=== PATIENT | male | born 1980 | race Caucasian/White ===

== ENCOUNTER 2018-01-14 08:10 | Emergency (ER) | payer BC, OTHER ==
[2018-01-14 08:44] VITALS: BP 139/83
--- NOTE | 2018-01-14 08:50 | ED ---
HPI Chest Pain - HPI Summary HPI Summary: 37 yr old male with complaint of discomfort in his anterior chest over the sternum. Non radiating, no worse with exertion. He states he took his BP yesterday and it was 180 systolic last evening. The patient has not had dizziness, SOB, sweating, nausea. No pleuritic symptoms. He has not seen a doctor in three years. - History of Current Complaint Time Seen by Provider: 01/14/18 08:43 - Allergy/Home Medications Allergies/Adverse Reactions: Allergies Allergy/AdvReac Type Severity Reaction Status Date / Time No Known Allergies Allergy Verified 03/03/16 08:32 PMH/Surg Hx/FS Hx/Imm Hx - Surgical History Surgery Procedure, Year, and Place: Left knee arthroscopy 2011. Right knee arthroscopy 2009 Infectious Disease History: Denies: Hx Clostridium Difficile, Hx Hepatitis, Hx Human Immunodeficiency Virus (HIV), Hx of Known/Suspected MRSA, Hx Shingles, Hx Tuberculosis, Hx Known/ Suspected VRE, Hx Known/Suspected VRSA, History Other Infectious Disease - Family History Known Family History: Positive: Hypertension - Social History Occupation: Employed Full-time Alcohol Use: Occasionally Alcohol Amount: 4 beers weekly Substance Use Type: Reports: None Smoking Status (MU): Current Some Day Smoker Review of Systems Constitutional: Negative Positive: Chest Pain Negative: Shortness Of Breath Negative: Nausea All Other Systems Reviewed And Are Negative: Yes Physical Exam Triage Information Reviewed: Yes Vital Signs Reviewed: Yes Appearance: Positive: Well-Appearing, No Pain Distress Skin: Positive: Warm, Skin Color Reflects Adequate Perfusion Head/Face: Positive: Normal Head/Face Inspection Eyes: Positive: EOMI ENT: Positive: Normal ENT inspection Neck: Positive: Nontender Respiratory/Lung Sounds: Positive: Clear to Auscultation, Breath Sounds Present Cardiovascular: Positive: RRR. Negative: Murmur Abdomen Description: Negative: Distended Musculoskeletal: Positive: Strength/ROM Intact Neurological: Positive: Alert, Oriented to Person Place, Time, CN Intact II-III , Normal Gait, Speech Normal Psychiatric: Positive: Normal Diagnostics - Laboratory Lab Statement: Any lab studies that have been ordered have been reviewed, and results considered in the medical decision making process. - EKG 01/14/18 Cardiac Rate: Bradycardia ST Segment: Normal Ectopy: None Chest Pain Course/Dx - Course Course Of Treatment: 37 yr old with chest discomfort for a day. He declines going to ER by ambulance or even by himself for work up. He signed out AMA. - Diagnoses Provider Diagnoses: Chest pain Discharge - Sign-Out/Discharge Documenting (check all that apply): Patient Departure All imaging exams completed and their final reports reviewed: No Studies - Discharge Plan Condition: Good Disposition: AGAINST MEDICAL ADVICE Referrals: Kvng Sweeney MD [Primary Care Provider] - - Billing Disposition and Condition Condition: GOOD Disposition: Against Medical Advice
== END 2018-01-14 09:05 | disposition left against medical advice (07) ==
LOC: UCCORT 08:10
DX: R07.89 Other chest pain (principal); F17.210 Nicotine dependence, cigarettes, uncomplicated
CPT/HCPCS: 93005; 99212; G0463

== ENCOUNTER 2018-04-15 12:23 | Emergency (ER) | payer BC ==
[2018-04-15 12:54] VITALS: BP 140/71
[2018-04-15] MEDS ORDERED: Albuterol 2.5 MG/3 ML NEB.SOL* (0.083%) INH ONE (13:01)
[2018-04-15] MEDS ORDERED: predniSONE TAB* 20 MG PO ONE (13:01)
--- NOTE | 2018-04-15 13:03 | UC ---
General HPI - HPI Summary HPI Summary: pt c/o being ill for over 9 days and it really took off on . sore throat at onset then sinus congestion and cough with chest congestion that remains severe. denies fever, wheezing and hx asthma. Green sputum. - History of Current Complaint Chief Complaint: UCRespiratory Stated Complaint: CHEWST CONGESTION,COUGH Time Seen by Provider: 04/15/18 12:53 Hx Obtained From: Patient Onset/Duration: Gradual Onset Timing: Constant Pain Intensity: 0 Associated Signs & Symptoms: Positive: Cough, Fever - at onset - Allergy/Home Medications Allergies/Adverse Reactions: Allergies Allergy/AdvReac Type Severity Reaction Status Date / Time No Known Allergies Allergy Verified 04/15/18 12:54 Home Medications: Home Medications Ibuprofen TAB* [Advil TAB*] 400 mg PO Q6H PRN 04/15/18 [History Confirmed ] guaiFENesin [Mucinex] 600 mg PO BID 04/15/18 [History Confirmed 04/15/18] PMH/Surg Hx/FS Hx/Imm Hx Previously Healthy: Yes - Surgical History Surgical History: Yes Surgery Procedure, Year, and Place: Left knee arthroscopy 2011. Right knee arthroscopy 2009 Other Surgical History: past lasik surgery 2 to 3 years ago - Family History Known Family History: Positive: Hypertension - Social History Alcohol Use: Occasionally Alcohol Amount: 4 beers weekly Substance Use Type: None Smoking Status (MU): Former Smoker Type: Cigars When Did the Patient Quit Smoking/Using Tobacco: 10 months ago- stopped chewing - Immunization History Most Recent Tetanus Shot: OVER 5 YEARS AGO Vaccination Up to Date: Yes Review of Systems All Other Systems Reviewed And Are Negative: Yes Constitutional: Positive: Fever Skin: Positive: Negative Eyes: Positive: Negative ENT: Positive: Sore Throat, Sinus Congestion Respiratory: Positive: Cough Cardiovascular: Positive: Negative Gastrointestinal: Positive: Negative Genitourinary: Positive: Negative Motor: Positive: Negative Neurovascular: Positive: Negative Musculoskeletal: Positive: Negative Neurological: Positive: Negative Psychological: Positive: Negative Physical Exam Triage Information Reviewed: Yes Appearance: Well-Appearing Vital Signs: Initial Vital Signs Temp 96.5 F 04/15/18 12:51 Pulse 67 04/15/18 12:51 Resp 17 04/15/18 12:51 BP 140/71 04/15/18 12:51 Pulse Ox 99 04/15/18 12:51 Vital Signs Reviewed: Yes Eyes: Positive: Conjunctiva Clear ENT: Positive: Pharynx normal, TMs normal, Hoarse voice, Uvula midline - but red and swollen, no airway compromise. Negative: Nasal congestion, Nasal drainage, Trismus, Muffled voice Neck: Positive: Supple, Nontender, No Lymphadenopathy Respiratory: Positive: No respiratory distress, Decreased breath sounds, Other: - frequent congested cough Cardiovascular: Positive: RRR, No Murmur Abdomen Description: Positive: Nontender, No Organomegaly, Soft Bowel Sounds: Positive: Present Musculoskeletal: Positive: ROM Intact Neurological: Positive: Alert Psychological: Positive: Age Appropriate Behavior Skin Exam: Normal Diagnostics - Laboratory Diagnostic Studies Completed/Ordered: rapid strep=neg - Radiology No standard instances Radiology Interpretation Completed By: Radiologist - cxr=IMPRESSION: SMALL RIGHT UPPER LOBE INFILTRATE. Re-Evaluation - Re-Evaluation First Eval Change: Improved - PT NOTES EASIER TO RAISE THE SECRETIONS FROM LUNGS POST NEB TX. AERATION IMPROVED ON EXAM. Course/Dx - Course Course Of Treatment: NON TOXIC, NOT HYPOXIC. NEED FOR CLOSE F/U TO RESOLUTION STRESSED. NO PCP. [facility] SUGGESTED BECAUSE NEAR PT'S HOME AND THEY ARE TAKING PT'S. PT DECLINED A WORK NOTE. NO HX HTN, I THINK BP IS ILLNESS RELATED - Diagnoses Provider Diagnosis: Uvulitis, Community acquired pneumonia Discharge - Sign-Out/Discharge Documenting (check all that apply): Patient Departure All imaging exams completed and their final reports reviewed: Yes - Discharge Plan Condition: Stable Disposition: HOME Prescriptions: Albuterol HFA INHALER* [Ventolin HFA Inhaler*] 2 puff INH Q6H #1 mdi DOXYcycline CAP(*) [DOXYcycline 100MG CAP(*)] 100 mg PO BID 10 Days #20 cap predniSONE TAB* [Deltasone 20 MG TAB*] 40 mg PO DAILY 5 Days #10 tab Patient Education Materials: Community Acquired Pneumonia (ED), Uvulitis (ED) Referrals: Hiral Ching MD [Medical Doctor] - 7 Days - Billing Disposition and Condition Condition: STABLE Disposition: Home
== END 2018-04-15 13:51 | disposition home or self-care (01) ==
LOC: UCCORT 12:23
DX: K12.2 Cellulitis and abscess of mouth (principal); J18.9 Pneumonia, unspecified organism; Z87.891 Personal history of nicotine dependence
CPT/HCPCS: 71046; 87651; 99212; G0463; J7512

== ENCOUNTER 2019-03-13 12:17 | Emergency (ER) | payer BC ==
--- NOTE | 2019-03-13 14:41 | UC ---
Respiratory Complaint HPI - HPI Summary HPI Summary: 38 y/o male presents to the urgent care c/o sore throat, nasal congestion w/ yellowish nasal discharge for the past week. Then she developed a productive cough which worse about 3 days ago. Sore throat subsided, but moderate PND has increase w/ B/L ear pressure and sinus pain. He developed fever of 101F yesterday. He has taken Mucinex PO to alleviate symptoms. Sinus pain now is 4/ 10 w/ a lot of pressure. Pt denies SOB, chest pain, wheezing, dizziness, abdominal pain, N/V/d. - History of Current Complaint Stated Complaint: CHEST CONGESTION Time Seen by Provider: 03/13/19 14:40 Hx Obtained From: Patient Onset/Duration: Gradual Onset, Lasting Weeks - 1 week, Still Present, Worse Since - 3 days Timing: Constant Severity Initially: Mild Severity Currently: Moderate Pain Intensity: 4 Pain Scale Used: 0-10 Numeric Character: Cough: Productive, Sputum Description: - yellowish Aggravating Factors: Recumbent Position Alleviating Factors: OTC Meds - Mucinex PO Associated Signs And Symptoms: Positive: Fever - last night of 101F resolved today, URI, Nasal Congestion, Sinus Discomfort. Negative: Wheezing - Risk Factors Pulmonary Embolism Risk Factors: Negative Cardiac Risk Factors: Negative Pseudomonas Risk Factors: Negative - Allergies/Home Medications Allergies/Adverse Reactions: Allergies Allergy/AdvReac Type Severity Reaction Status Date / Time No Known Allergies Allergy Verified 03/13/19 14:40 Home Medications: Home Medications Guaifenesin/Pseudoephedrne HCl [Mucinex D ER 600-60 mg Tablet] 2 each PO BID PRN 03/13/19 [History Confirmed 03/13/19] PMH/Surg Hx/FS Hx/Imm Hx Previously Healthy: Yes Respiratory History: Pneumonia - 2018 - Surgical History Surgical History: Yes Surgery Procedure, Year, and Place: Left knee arthroscopy 2011. Right knee arthroscopy 2009 Other Surgical History: past lasik surgery 2 to 3 years ago - Family History Known Family History: Positive: Hypertension Family History: stroke - Social History Occupation: Employed Full-time Lives: With Family Alcohol Use: Occasionally Alcohol Amount: 4 beers weekly Substance Use Type: None Smoking Status (MU): Former Smoker Type: Cigars When Did the Patient Quit Smoking/Using Tobacco: 10 months ago- stopped chewing - Immunization History Most Recent Tetanus Shot: OVER 5 YEARS AGO Vaccination Up to Date: Yes Review of Systems All Other Systems Reviewed And Are Negative: Yes Constitutional: Positive: Negative Skin: Positive: Negative ENT: Positive: Sore Throat, Ear Ache - B/L ear pressure, Nasal Discharge - yellowish, Sinus Congestion, Sinus Pain/Tenderness, Other - moderate PND Respiratory: Positive: Cough - productive cough w/ yellowish phlegm Cardiovascular: Positive: Negative Gastrointestinal: Positive: Negative Genitourinary: Positive: Negative Motor: Positive: Negative Neurovascular: Positive: Negative Musculoskeletal: Positive: Negative Neurological: Positive: Negative Psychological: Positive: Negative Is Patient Immunocompromised?: No Physical Exam - Summary Physical Exam Summary: Vital Signs Reviewed: Yes General: well developed, well nourished male sitting in the examining table w/o any apparent respiratory or pain distress Eyes: Positive: Conjunctiva Clear - PERRLA, EOMI, fundi grossly normal ENT: Positive: Normal ENT inspection, Hearing grossly normal, Pharynx normal, Nasal congestion - edematous and erythematous nasal mucosa, Nasal drainage - yellowish drainage, TMs normal. Negative: Tonsillar swelling, Tonsillar exudate. B/L maxillary and frontal sinuses tenderness. Yellowish moderate PND Neck: Positive: Supple, Nontender, No Lymphadenopathy Respiratory: no orthopnea or dyspnea. Able to speak in full sentences, no retractions or accessory muscle use, no tripod position, stridor, or head bobbing. Positive breath sounds bilaterally. diffuse scattered wheezing and rhonchi on b/L lungs, no crackles or rales. Cardiovascular: Positive: RRR, No Murmur, Pulses Normal, Brisk Capillary Refill Abdomen Description: Positive: Nontender, No Organomegaly, Soft. Negative: CVA Tenderness (R), CVA Tenderness (L) Bowel Sounds: Positive: Present Musculoskeletal Exam: Normal Musculoskeletal: Positive: Strength Intact, ROM Intact, No Edema Neurological Exam: Normal Psychological Exam: Normal Skin Exam: Normal Triage Information Reviewed: Yes Respiratory Course/Dx - Course Course Of Treatment: 38 y/o male presents to the urgent care c/o sore throat, nasal congestion w/ yellowish nasal discharge for the past week. Then she developed a productive cough which worse about 3 days ago. Sore throat subsided, but moderate PND has increase w/ B/L ear pressure and sinus pain. He developed fever of 101F yesterday. He has taken Mucinex PO to alleviate symptoms. Sinus pain now is 4/ 10 w/ a lot of pressure. Pt denies SOB, chest pain, wheezing, dizziness, abdominal pain, N/V/d. Pt reports Hx of pneumonia last year. Hx obtained. Pt w/ acute bacterial sinusitis on examination. Vitals: WNL. Pt with 1 week of symptoms getting worse. Pt Rx Amoxicillin PO and flonase nasal spray. Advised to continue w/ Mucinex PO to alleviate his cough. Discharge instructions explained to Pt. Advised to Return to the clinic or PCP if symptoms do not improve.Pt understood and agreed with plan of care. - Differential Dx/Diagnosis Differential Diagnosis/HQI/PQRI: Asthma, Bronchitis, Exacerbation Of COPD, Influenza, Laryngitis, Sinusitis Provider Diagnosis: Acute bacterial sinusitis Discharge ED - Sign-Out/Discharge Documenting (check all that apply): Patient Departure - D/c home All imaging exams completed and their final reports reviewed: No Studies - Discharge Plan Condition: Stable Disposition: HOME Prescriptions: Amoxicillin PO (*) [Amoxicillin 875 MG (*)] 875 mg PO BID #14 tab Fluticasone NASAL SPRAY 50MCG* [Flonase NASAL SPRAY 50MCG*] 2 spray BOTH NARES DAILY #1 btl Patient Education Materials: Sinusitis (ED) Referrals: Hiral Ching MD [Primary Care Provider] - 3 Days Additional Instructions: 1- Please increase fluid intake and rest. take full course of antibiotics to avoid resistance. Take yogurts w/ probiotics or Culturelle to protect your GI system 2-Use Flonase as directed to help drain fluid. Also buy saline drops to clear sinuses 3-Continue taking Mucinex PO to alleviates sinus congestion 4-Please f/u w/ your PCP in 3 days if symptoms do not improve for further management and treatment - Billing Disposition and Condition Condition: STABLE Disposition: Home
[2019-03-13 14:49] VITALS: BP 135/86
== END 2019-03-13 15:31 | disposition home or self-care (01) ==
LOC: UCCORT 12:17
DX: J01.90 Acute sinusitis, unspecified (principal); B96.89 Other specified bacterial agents as the cause of diseases classified elsewhere; R09.81 Nasal congestion; Z96.653 Presence of artificial knee joint, bilateral; Z87.891 Personal history of nicotine dependence
CPT/HCPCS: 99212; G0463